=== PATIENT | female | born 2000 | race Caucasian/White ===

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

== ENCOUNTER 2020-01-06 11:03 | Emergency (ER) | payer MEDICAID ==
[~2020-01-06] VITALS: Ht 165.1 cm; Wt 63.0 kg
[2020-01-06 11:15] VITALS: BP 120/75; Ht 165.1 cm; Wt 63.0 kg
== END 2020-01-06 11:43 | disposition home or self-care (01) ==
LOC: ED 11:03
DX: B34.9 Viral infection, unspecified (principal)

== ENCOUNTER 2020-02-04 22:31 | Emergency (ER) | payer OTHER, MEDICAID ==
[~2020-02-04] VITALS: Ht 165.1 cm; Wt 63.0 kg
[2020-02-05 00:28] VITALS: BP 124/72
== END 2020-02-05 00:02 | disposition home or self-care (01) ==
LOC: ED 22:31
DX: M25.512 Pain in left shoulder (principal); V49.49XA Driver injured in collision with other motor vehicles in traffic accident, initial encounter; Y93.I9 Activity, other involving external motion; Y92.488 Other paved roadways as the place of occurrence of the external cause; Y99.8 Other external cause status
CPT/HCPCS: Q0092

== ENCOUNTER 2020-05-03 08:15 | Emergency (ER) | payer MEDICAID ==
[~2020-05-03] VITALS: Ht 165.1 cm; Wt 61.7 kg
[2020-05-03 08:49] VITALS: Ht 165.1 cm; Wt 61.7 kg
[2020-05-03 11:16] VITALS: BP 116/65
== END 2020-05-03 11:16 | disposition home or self-care (01) ==
LOC: ED 08:15
DX: R51 Headache (principal); R42 Dizziness and giddiness; F10.129 Alcohol abuse with intoxication, unspecified
CPT/HCPCS: J1885; J2405